=== PATIENT | female | born 1980 | race Two or more races ===

== ENCOUNTER 2020-01-17 16:12 | Inpatient (IN) | payer MEDICAID, OTHER ==
[~2020-01-17] VITALS: Ht 165.1 cm; Wt 107.2 kg
[2020-01-17] MEDS ORDERED: SODIUM CHLORIDE 0.9% 1,000 ML IV ONE ×2 (16:18)
[2020-01-17] MEDS ORDERED: ONDANSETRON HCL 4 MG/2 ML VIAL IV ONE (16:30)
[2020-01-17] MEDS ORDERED: MORPHINE SULFATE 4 MG/ML SYR/VIAL IV ONE (16:30)
[2020-01-17] MEDS ORDERED: ASPirin 81 mg TAB PO ONE (16:30)
[2020-01-17 17:00] LABS: Basophils # (auto) 0 10 ^3/uL (0-0.2); Basophils % (auto) 0.3 % (0.0-2.0); Eosinophils # (auto) 0.2 10 ^3/uL (0-0.8); Lymphocytes # (auto) 1.9 10 ^3/uL (0.4-5.4); Monocytes # (auto) 0.7 10 ^3/uL (0-1.3)
[2020-01-17 17:02] LABS: Eosinophils % (auto) 1.3 % (0.0-7.0); Hematocrit 41.9 % (36.0-46.0); Hemoglobin 14.2 g/dL (12.2-16.2); Lymphocytes % (auto) 16.1 % (10.0-50.0); Mean Corpuscular Hemoglobin 34.3 pg (28.0-32.0); Mean Corpuscular Hgb Conc. 33.9 g/dL (32.0-36.0); Mean Corpuscular Volume 101.2 fL (80.0-100.0); Monocytes % (auto) 5.9 % (0.0-12.0); Neutrophils # (auto) 9.2 10 ^3/uL (1.6-8.6); Neutrophils % (auto) 76.4 % (37.0-80.0); Nucleated Red Blood Cells % 0.1 %; Platelet Count (auto) 218 10^3/uL (140-450); Red Blood Cells 4.14 10^6/uL (4.0-5.20); White Blood Cell 12.1 10^3/uL (4.4-10.8)
[2020-01-17 17:18] LABS: Alanine Aminotransferase 128 U/L (13-56); Albumin 3.6 g/dL (3.4-5.0); Anion Gap 4 (5-15); Aspartate Aminotransferase 66 U/L (15-37); BUN/Creatinine Ratio 6.8; Blood Urea Nitrogen 6 mg/dL (7-18); Calcium 8.7 mg/dL (8.5-10.1); Carbon Dioxide 25 mmol/L (21-32); Chloride 105 mmol/L (98-107); GFR African American 91 mL/min; GFR Non-African American 75 mL/min; Glucose 138 mg/dL (74-106); Potassium 5.2 mmol/L (3.5-5.1); Sodium 134 mmol/L (136-145)
[2020-01-17 17:23] LABS: Alkaline Phosphatase 76 U/L (45-117); Bilirubin, Total 0.3 mg/dL (0.2-1.0); Total Protein 7.7 g/dL (6.4-8.2)
[2020-01-17] MEDS ORDERED: SODIUM ZIRCONIUM CYCL 10 GM PAK PO ONE (17:45)
[2020-01-17] MEDS ORDERED: InsuLIN REG 1unit/0.01ml Soln (100units/ml) IV ONE (17:45)
[2020-01-17] MEDS ORDERED: CALCIUM CHL 100MG/ML 500 MG in D5W 5% 100 ML IV ONE (17:45)
[2020-01-17] MEDS ORDERED: DEXTROSE (50%) 50ML SYRG IV ONE (17:45)
[2020-01-17] MEDS ORDERED: SODIUM BICARBONATE 8.4% INJ 50ML SYRINGE IV ONE (17:45)
[2020-01-17] MEDS ORDERED: ALBUTEROL SULF 2.5 MG/0.5ML(0.5%) NEB SOLN NEB ONE (17:45)
[2020-01-17] MEDS ORDERED: MORPHINE SULF INJ 2 MG/ML SYRINGE 1ML IV PRN (18:00)
[2020-01-17] MEDS ORDERED: hydrALAZINE HCL 20 MG/ML VL IV PRN (18:00)
[2020-01-17] MEDS ORDERED: ACETAMINOPHEN 500 MG TAB PO PRN (18:00)
[2020-01-17] MEDS ORDERED: ONDANSETRON HCL 4 MG/2 ML VIAL IV PRN (18:00)
[2020-01-17] MEDS: FOLIC ACID 1 MG, MULTIPLE VITAMIN 10 ML, MAGNESIUM SULF SDV 50% 8 MEQ, THIAMINE INJ 100... INJ SCH ×5 (19:33)
[2020-01-17 20:30] VITALS: BP 159/100
--- NOTE | 2020-01-17 21:00 | NUR ---
Telemetry admit from ER NATHANYONATAN admitted to Telemetry unit after SBAR received. Patient oriented to Inessa Lopez RN primary RN, unit, room, bed, and unit policies regarding patient care and visiting hours. Patient now on continuous telemetry monitoring, tele box # [id number] and telemetry reading on arrival to unit is SR. Patient weighed by bedscale and encouraged to call if they need something. All questions and concerns addressed, patient verbalized understanding, will continue to monitor Note: []
[2020-01-17] MEDS: METOPROLOL TARTRATE 25 MG TAB PO SCH (21:42)
[2020-01-17] MEDS: ATORVASTATIN 20 MG TAB PO SCH (21:42)
[2020-01-17 23:44] VITALS: BP 159/100
[2020-01-18 00:45] VITALS: BP 159/104
--- NOTE | 2020-01-18 01:35 | NUR ---
Received a critical Troponin of 4.56. Will page hospitalist
[2020-01-18] MEDS: NITROGLYCERIN 0.4 MG SL TAB SL PRN ×3 (01:40→02:04)
--- NOTE | 2020-01-18 01:40 | NUR ---
0137 - Paged Hospitalist, awaiting call back [phone] - Checked on patient, patient complained of chest pain and chest pressure of 8/10. Complained of sweating. O2 administered at 2 Lpm/NC V/S checked and gave NTG SL x 3 doses q 5 mins 0155 - EKG done and attached to chart
[2020-01-18] MEDS: MORPHINE SULF INJ 2 MG/ML SYRINGE 1ML IV PRN ×2 (02:12→02:52)
--- NOTE | 2020-01-18 02:12 | NUR ---
0210 - Patient stated chest pressure is still there but pain is coming down from 8/10 to 6/10. Per patient, still felt uncomfortable 0212 - Gave Morphine per chest pain protocol 0225 - 2nd page placed to hospitalist, awaiting call back
--- NOTE | 2020-01-18 02:45 | NUR ---
0243 - Hospitalist John called back and updated on patient's status. Received order at this time to give Lovenox x1 Will closely monitor patient
[2020-01-18] MEDS ORDERED: ENOXAPARIN SOD 80 MG/0.8ML SYRINGE SC ONE (03:00)
--- NOTE | 2020-01-18 03:51 | NUR ---
Patient sleeping at this time, no respiratory distress noted. Heart rhythm on the monitor running SR at this time in the 80's. Will continue to monitor
[2020-01-18 05:39] VITALS: BP 154/99
[2020-01-18 06:21] LABS: Basophils # (auto) 0 10 ^3/uL (0-0.2); Basophils % (auto) 0.1 % (0.0-2.0); Eosinophils # (auto) 0 10 ^3/uL (0-0.8); Eosinophils % (auto) 0.1 % (0.0-7.0); Hematocrit 42.9 % (36.0-46.0); Hemoglobin 14.8 g/dL (12.2-16.2); Lymphocytes # (auto) 1.3 10 ^3/uL (0.4-5.4); Lymphocytes % (auto) 7.2 % (10.0-50.0); Mean Corpuscular Hemoglobin 34.8 pg (28.0-32.0); Mean Corpuscular Hgb Conc. 34.4 g/dL (32.0-36.0); Mean Corpuscular Volume 101.1 fL (80.0-100.0); Monocytes # (auto) 0.8 10 ^3/uL (0-1.3); Monocytes % (auto) 4.1 % (0.0-12.0); Neutrophils # (auto) 16.6 10 ^3/uL (1.6-8.6); Neutrophils % (auto) 88.5 % (37.0-80.0); Nucleated Red Blood Cells % 0.1 %; Platelet Count (auto) 238 10^3/uL (140-450); Red Blood Cells 4.24 10^6/uL (4.0-5.20); Red Cell Distribution Width 12.8 % (11.8-14.3); White Blood Cell 18.8 10^3/uL (4.4-10.8)
[2020-01-18 06:30] LABS: INR 1.01 (0.9-1.15); Partial Thromboplastin Time 29.3 sec (23.64-32.05)
[2020-01-18 06:35] VITALS: BP 148/98
[2020-01-18] MEDS: HYDROcodone-ACET 5/325MG TAB PO PRN (06:36)
--- NOTE | 2020-01-18 06:36 | NUR ---
Patient stated has a tolerable pain with sore upper back. [place] given at this time
[2020-01-18 06:38] LABS: Potassium 3.9 mmol/L (3.5-5.1)
[2020-01-18 06:50] LABS: BUN/Creatinine Ratio 6.6; Calcium 8.6 mg/dL (8.5-10.1)
--- NOTE | 2020-01-18 07:30 | NUR ---
Opening Shift Note Assumed care of patient, awake and alert. No S/S of distress/SOB. Patient reporting some chest discomfort but states "it went down from earlier" and is currently refusing readministration of morphine and nitroglycerin PRN. On 3L O2 nasal cannula. Bed is low, locked with 2x side rails up. Call light is within reach. Instructed on POC and to call for assist PRN, will continue to monitor for changes Q1hr and PRN.
[2020-01-18 08:32] VITALS: BP 142/95
[2020-01-18 08:52] LABS: Urine WBC None Seen /hpf (0 - 5)
[2020-01-18 09:00] LABS: Urine Amorphous Crystal MOD /hpf (None Seen); Urine Bacteria NONE SEEN /hpf (None Seen); Urine Blood Negative /uL (Negative); Urine Mucus FEW (None Seen); Urine Specific Gravity 1.028 (1.001-1.035)
[2020-01-18 09:19] LABS: Alcohol, Urine < 3.0 mg/dL (0-5); Amphetamine Screen, Urine NEGATIVE (NEGATIVE); Barbiturate Scree,Urine NEGATIVE (NEGATIVE); Benzodiazephine Screen, Urine NEGATIVE (NEGATIVE); Cannabinoid Screen, Urine NEGATIVE (NEGATIVE); Cocaine Screen, Urine NEGATIVE (NEGATIVE); Opiate Scree,Urine POSITIVE (NEGATIVE); Phencyclidine Screen, Urine NEGATIVE (NEGATIVE)
--- NOTE | 2020-01-18 09:20 | NUR ---
Attempted IV insertion IV to right AC is leaking, and no longer patent. IV removed with catheter fully intact. This nurse attempted 2 IV's and patient refusing 3rd attempt. Charge nurse Fernanda present at this time. Patient is also refusing morphine and nitroglycerin administration. Will continue to monitor.
[2020-01-18] MEDS ORDERED: CLOPIDOGREL 300 MG TAB PO ONE (09:30)
[2020-01-18] MEDS: ASPirin-EC 81 mg tab PO SCH (09:59)
[2020-01-18] MEDS: METOPROLOL TARTRATE 25 MG TAB PO SCH ×2 (09:59→21:52)
[2020-01-18] MEDS ORDERED: LISINOPRIL 10 MG TAB PO SCH ×2 (10:00)
[2020-01-18] MEDS: FAMOTIDINE 20 MG TAB PO SCH (10:00)
--- NOTE | 2020-01-18 10:03 | NUR ---
technician assistant at bedside. no distress noted.
[2020-01-18] MEDS ORDERED: HEPARIN SODIUM (PORCINE) 5000 UNITS/ML 1ML VIAL IV ONE (10:05)
--- NOTE | 2020-01-18 10:06 | NUR ---
Pharmacy Called pharmacy regarding plavix medication. Will be sent up through bullet system.
[2020-01-18 10:13] LABS: Magnesium 2.7 mg/dL (1.6-2.6)
[2020-01-18] MEDS ORDERED: HEPARIN DRIP/D5W 100UNITS/ML 250 ML IV SCH (10:15)
--- NOTE | 2020-01-18 10:15 | NUR ---
REPORT Report received from Abi PANCHAL awaiting for patient to arrive into room 263.
[2020-01-18] MEDS ORDERED: NITROGLYCERIN 0.2MG/HR TOPICAL PATCH TD ONE (10:45)
[2020-01-18] MEDS ORDERED: NICOTINE 14 MG/24HR TOPICAL PATCH TD ONE (10:45)
--- NOTE | 2020-01-18 10:45 | NUR ---
Patient transferred to [facility] Care endorsed to [facility] RN. No distress noted upon departure. RN aware of critical troponin of 36.40.
--- NOTE | 2020-01-18 10:45 | NUR ---
RECEIVED PATIENT Received patient into room 263. Connected patient to bedside monitor and physical assessment done. Call light within reach and bed at lowest position.
[2020-01-18] MEDS: FOLIC ACID 1 MG, MULTIPLE VITAMIN 10 ML, MAGNESIUM SULF SDV 50% 8 MEQ, THIAMINE INJ 100... INJ SCH ×5 (11:14)
--- NOTE | 2020-01-18 11:25 | NUR ---
PLASTERER STUCCO Paged Ale Perez PLASTERER STUCCO/Called back and aware of high blood pressure and unable to get IV access after multiple tries. Several nurses have tried. New orders received, this RN to input into system.
[2020-01-18] MEDS ORDERED: LABETALOL HCL 5 MG/ML 4ML SYRINGE IV PRN (11:30)
--- NOTE | 2020-01-18 13:12 | NUR ---
MD Dr. Mckeon at bedside updated on patient condition with new orders, this RN to input into system. MD aware of increase blood pressure and O2 sats. MD spoke to patient regarding plan of care and questions/concerns answered by MD.
[2020-01-18] MEDS ORDERED: cloNIDine HCL 0.1 MG TAB PO PRN (13:15)
[2020-01-18] MEDS ORDERED: VANCOMYCIN PER PHARMACY 0 MG IV SCH (13:15)
[2020-01-18] MEDS ORDERED: VANCOMYCIN 1GM/250ML 250 ML IV ONE (13:45)
[2020-01-18 14:15] LABS: Lactic Acid w/Reflex 2.8 mmol/L (0.4-2.0)
--- NOTE | 2020-01-18 15:20 | NUR ---
CRITICAL LAB Received critical lab result of Troponin of 71.6, JENNIFER Perez paged to be notified, awaiting for call back.
[2020-01-18 15:59] VITALS: BP 137/84
--- NOTE | 2020-01-18 16:15 | NUR ---
JENNIFER Perez TOE PUNCHER called back and new orders received, this RN to input into system. Will carry out orders.
--- NOTE | 2020-01-18 16:20 | NUR ---
JENNIFER Perez at bedside aware of EKG done and elevated troponin of 71.6. Ale RODRIGUEZ called Dr. Rosenthal to make aware and schedule left heart cath today.
[2020-01-18] MEDS ORDERED: NITROGLYCERIN 50MG/250ML 250 ML IV SCH (16:24)
--- NOTE | 2020-01-18 16:30 | NUR ---
CONSENTS Consent obtained for left heart cath.
[2020-01-18] MEDS ORDERED: NITROGLYCERIN 50MG/250ML 250 ML IV ONE (16:41)
[2020-01-18 16:49] LABS: INR 0.99 (0.9-1.15); Partial Thromboplastin Time 33.9 sec (23.64-32.05)
[2020-01-18] MEDS ORDERED: HEPARIN SODIUM (PORCINE) 5000 UNITS/ML 1ML VIAL ONE ×2 (16:57→17:41)
[2020-01-18] MEDS ORDERED: ANGIOMAX 250 MG VIAL IV ONE (16:57)
[2020-01-18] MEDS ORDERED: MIDAZOLAM HCL 1MG/1ML-2 ML VIAL ONE (16:58)
[2020-01-18] MEDS ORDERED: VERAPAMIL 2.5MG/ML INJ 2ML VIAL IV ONE (16:58)
[2020-01-18] MEDS ORDERED: fentaNYL CITRATE 100 MCG/2 ML VL ONE (16:58)
[2020-01-18] MEDS ORDERED: LIDOCAINE 2%HCL (LOCAL ANESTH.) INJ 20ML MDV ONE (16:58)
[2020-01-18] MEDS ORDERED: SODIUM CHL 0.9% 0 ML ONE (16:58)
--- NOTE | 2020-01-18 17:05 | NUR ---
CONVERSION MAN prestressed concrete laborer team at bedside to transfer patient to bobcat driver/labor. Patient connected to cafeteria monitor and portable oxygen.
[2020-01-18] MEDS ORDERED: IOHEXOL 350 MG/ML 100ML IJ ONE ×2 (17:06→17:42)
[2020-01-18] MEDS: PIPERACILLIN-TAZOB 3.375GM 100 ML IV SCH (18:00)
[2020-01-18] MEDS ORDERED: ASPirin 325 MG TAB ONE (18:14)
--- NOTE | 2020-01-18 18:30 | NUR ---
PATIENT RETURNED Patient returned from brush clearing laborer, connected patient to bedside monitor, patient on simple mask at 15 liters. vital signs stable. Insertion site on the right radial with pressure device inflated with 14ml of air per brush clearing laborer nurses deflate device by 2 ml starting in one hour.
--- NOTE | 2020-01-18 18:30 | NUR ---
Dio return from Armored Car Guard And Driver; Patient taken back to [facility] 263 on patient monitor, care endorsed to primary [facility] RN, Patient vital signs stable and denies any pain, TR band in place, no bleeding noted at this time.
--- NOTE | 2020-01-18 19:20 | NUR ---
opening note received report from vale rn. patient aox4 on 15 L face mask stating >90% spo2. breathing in 30's stating that she is anxious related to face mask being on her face. called respiratory therapist to change to Oxymizer. no chest discomfort. st 110 on bedside monitor with bp 120's/50's. right wrist ptca incision site intact with air guard dressing. will remove air per hospital policy. repositioned patient for comfort. for more information see interventions. all fall and safety precautions in place.
[2020-01-18 20:00] VITALS: BP 122/80
--- NOTE | 2020-01-18 20:10 | NUR ---
placed patient on Oxymizer 8L nc for patient to stat >92%spo2 on bedside monitor. breathing 25 bpm at this time. patient does not complain of sob
[2020-01-18] MEDS: ATORVASTATIN 20 MG TAB PO SCH (21:52)
[2020-01-19] VITALS: BP 127/62
[2020-01-19 03:31] LABS: Eosinophils # (auto) 0 10 ^3/uL (0-0.8); Eosinophils % (auto) 0.1 % (0.0-7.0); Lymphocytes # (auto) 1.4 10 ^3/uL (0.4-5.4); Mean Corpuscular Hemoglobin 34.6 pg (28.0-32.0); Monocytes # (auto) 1.4 10 ^3/uL (0-1.3); Nucleated Red Blood Cells % 0.1 %; Red Cell Distribution Width 13.2 % (11.8-14.3)
[2020-01-19 03:33] LABS: Basophils # (auto) 0 10 ^3/uL (0-0.2); Basophils % (auto) 0.2 % (0.0-2.0); Hematocrit 40.9 % (36.0-46.0); Hemoglobin 14.1 g/dL (12.2-16.2); Lymphocytes % (auto) 6.8 % (10.0-50.0); Mean Corpuscular Hgb Conc. 34.5 g/dL (32.0-36.0); Mean Corpuscular Volume 100.5 fL (80.0-100.0); Monocytes % (auto) 6.8 % (0.0-12.0); Neutrophils # (auto) 18.3 10 ^3/uL (1.6-8.6); Neutrophils % (auto) 86.1 % (37.0-80.0); Platelet Count (auto) 231 10^3/uL (140-450); Red Blood Cells 4.07 10^6/uL (4.0-5.20); White Blood Cell 21.2 10^3/uL (4.4-10.8)
[2020-01-19 03:46] LABS: INR 1.01 (0.9-1.15); Partial Thromboplastin Time 27.3 sec (23.64-32.05)
[2020-01-19 03:49] LABS: BUN/Creatinine Ratio 7.6; Calcium 8.1 mg/dL (8.5-10.1); Potassium 3.7 mmol/L (3.5-5.1)
[2020-01-19] MEDS: PIPERACILLIN-TAZOB 3.375GM 100 ML IV SCH ×4 (04:14→20:01)
[2020-01-19] MEDS: VANCOMYCIN 1GM/250ML 250 ML IV SCH ×3 (04:15→23:14)
--- NOTE | 2020-01-19 07:45 | NUR ---
Opening Shift Note Assumed care of patient, awake and alert. No S/S of distress/SOB or pain. See interventions for complete assessment. Bed locked on low position, side rails up2, call restrepo within reach, instructed on POC and to call for assist PRN, will continue to monitor for changes Q1hr and PRN.
[2020-01-19 07:55] VITALS: BP 127/84
--- NOTE | 2020-01-19 08:45 | NUR ---
Dr Del Rio at bedside, updated on patient's status. Patient seen and examined. Received verbal order for D dimer, read back and verified. Will carry out new orders.
[2020-01-19] MEDS ORDERED: NICOTINE 14 MG/24HR TOPICAL PATCH TD SCH (10:00)
[2020-01-19] MEDS ORDERED: PANTOPRAZOLE 40 MG TAB PO SCH (10:00)
[2020-01-19] MEDS ORDERED: NITROGLYCERIN 0.2MG/HR TOPICAL PATCH TD SCH (10:00)
[2020-01-19] MEDS: LISINOPRIL 10 MG TAB PO SCH (10:00)
--- NOTE | 2020-01-19 10:00 | NUR ---
IV removal IV on RT hand puffy and tender, discontinued with sterile technique, catheter fully intact. Pressure dressing applied to site. Patient tolerated procedure well.
[2020-01-19] MEDS: CLOPIDOGREL BISULFATE 75 MG TAB PO SCH (10:08)
[2020-01-19] MEDS: ASPirin-EC 81 mg tab PO SCH (10:08)
[2020-01-19] MEDS: FAMOTIDINE 20 MG TAB PO SCH (10:08)
[2020-01-19] MEDS: NICOTINE 14 MG/24HR TOPICAL PATCH TD SCH (10:08)
[2020-01-19] MEDS: METOPROLOL TARTRATE 25 MG TAB PO SCH ×2 (10:10→21:49)
[2020-01-19] MEDS: CARVEDILOL 3.125 MG TAB PO SCH (10:11)
--- NOTE | 2020-01-19 10:23 | NUR ---
Spoke to Dr Del Rio over the phone, informed of D dimer 0.93, verbalized understanding. Received telephone orders for BLE venous US, read back and verified. Will carry out.
[2020-01-19] MEDS: IPRATROPIUM BROM 0.5 MG/2.5ML INH SOL NEB SCH ×4 (10:35→22:09)
[2020-01-19] MEDS: ALBUTEROL SULF 2.5 MG/0.5ML(0.5%) NEB SOLN NEB SCH ×4 (10:36→22:09)
[2020-01-19 11:53] VITALS: BP 105/59
[2020-01-19 12:02] VITALS: BP 105/59
--- NOTE | 2020-01-19 12:53 | NUR ---
Dr Rosenthal at bedside, updated on patient's status. Patient seen and examined. Will carry out new orders.
[2020-01-19] MEDS: FOLIC ACID 1 MG, MULTIPLE VITAMIN 10 ML, MAGNESIUM SULF SDV 50% 8 MEQ, THIAMINE INJ 100... INJ SCH ×5 (12:57)
[2020-01-19 15:46] VITALS: BP 103/66
--- NOTE | 2020-01-19 19:45 | NUR ---
Opening note Report received from vale RN. Patient is A/OX4, denies any pain or distress. Patient connected to continuous monitor, heart rate in low 100's, SPO2 at 96% on 4L oxymizer. Physical assessment done-see interventions. IV to left hand running banana bag from earlier today. Incision to right wrist open to air, asymptomatic. POC discussed and all questions answered. Call light within reach.
[2020-01-19 20:00] VITALS: BP 91/70
[2020-01-19] MEDS: ATORVASTATIN 20 MG TAB PO SCH (21:48)
--- NOTE | 2020-01-19 22:00 | NUR ---
IV insertion IV access obtained, via clean sterile technique by inserting [22] gauge catheter at [RIGHT UPPER FOREARM] after [1] attempt(s). IV secured properly. No trauma to site. Patient tolerated well. NOTE: 2ND IV SITE
--- NOTE | 2020-01-19 22:05 | NUR ---
IV removal TO LEFT HAND DUE TO SWOLLEN IV DC'd with clean sterile technique, catheter fully intact. Pressure dressing applied to site. Patient tolerated well.
[2020-01-20] VITALS: BP 99/64
[2020-01-20] MEDS: PIPERACILLIN-TAZOB 3.375GM 100 ML IV SCH ×4 (02:18→20:00)
[2020-01-20] MEDS: ALBUTEROL SULF 2.5 MG/0.5ML(0.5%) NEB SOLN NEB SCH ×6 (02:19→21:57)
[2020-01-20] MEDS: IPRATROPIUM BROM 0.5 MG/2.5ML INH SOL NEB SCH ×6 (02:19→21:57)
--- NOTE | 2020-01-20 02:30 | NUR ---
AM CARES Patient given complete bed bath and linen change by LORI Lucero. Patient cleansed with warm soapy water. New gown provided and patient reconnected to monitors.
[2020-01-20 03:42] LABS: Basophils # (auto) 0 10 ^3/uL (0-0.2); Basophils % (auto) 0.2 % (0.0-2.0); Eosinophils # (auto) 0.1 10 ^3/uL (0-0.8); Red Cell Distribution Width 13.2 % (11.8-14.3)
[2020-01-20 03:45] LABS: Eosinophils % (auto) 0.5 % (0.0-7.0); Hematocrit 37.7 % (36.0-46.0); Lymphocytes # (auto) 2.4 10 ^3/uL (0.4-5.4); Lymphocytes % (auto) 13.5 % (10.0-50.0); Mean Corpuscular Hgb Conc. 34.5 g/dL (32.0-36.0); Mean Corpuscular Volume 101.3 fL (80.0-100.0); Monocytes # (auto) 1.3 10 ^3/uL (0-1.3); Monocytes % (auto) 7.3 % (0.0-12.0); Neutrophils # (auto) 13.9 10 ^3/uL (1.6-8.6); Neutrophils % (auto) 78.5 % (37.0-80.0); Nucleated Red Blood Cells % 0.2 %; Platelet Count (auto) 215 10^3/uL (140-450); Red Blood Cells 3.72 10^6/uL (4.0-5.20); White Blood Cell 17.6 10^3/uL (4.4-10.8)
[2020-01-20 04:00] VITALS: BP 110/79
--- NOTE | 2020-01-20 06:37 | NUR ---
DESATURATION PATIENT ON ROOM AIR FOR PENDING ABG. PATIENT DESATURATING DOWN TO LOW 80'S AND SUSTAINING. RT PAGED TO DRAW ABG NOW
--- NOTE | 2020-01-20 07:22 | NUR ---
Closing Patient awake, resting in bed. Patient back on oxygen. Patient now saturating at 96% on 4L nasal cannula. Pending ABG results. Call light within reach Care endorsed to RN Lokesh
--- NOTE | 2020-01-20 07:45 | NUR ---
Opening Shift Note Assumed care of patient, awake and alert, lying on the bed. No S/S of distress/SOB or chest pain noted, on O2 NC 4 LPM, O2 saturation 94-96%. Instructed on POC and to call for assist PRN, will continue to monitor for changes Q1hr and PRN. Breakfast tray provided.
[2020-01-20 07:56] VITALS: BP 94/64
--- NOTE | 2020-01-20 08:25 | NUR ---
Dr. Del Rio at the bedside, seen and examined patient at this time, plan of care discussed with patient, plan to do CT chest with contrast possible tomorrow, patient made aware about the plan. Received order for transfer to Tele . Patient agreed with the plan.
[2020-01-20] MEDS ORDERED: LOPERAMIDE HCL 2 MG CAP ONE (09:27)
[2020-01-20] MEDS: FAMOTIDINE 20 MG TAB PO SCH (09:29)
[2020-01-20] MEDS: CLOPIDOGREL BISULFATE 75 MG TAB PO SCH (09:29)
[2020-01-20] MEDS: LISINOPRIL 10 MG TAB PO SCH (09:30)
[2020-01-20] MEDS: ASPirin-EC 81 mg tab PO SCH (09:30)
[2020-01-20] MEDS: CARVEDILOL 3.125 MG TAB PO SCH (09:30)
[2020-01-20] MEDS: VANCOMYCIN 1GM/250ML 250 ML IV SCH ×2 (09:32→17:07)
[2020-01-20] MEDS: NICOTINE 14 MG/24HR TOPICAL PATCH TD SCH (09:32)
--- NOTE | 2020-01-20 09:35 | NUR ---
Pricilla CHIEF YEOMAN at the bedside, seen and examined patient at this time, plan of c are discussed with patient, received order for D/C Metoprolol and Protonix, will carry out, patient made aware.
--- NOTE | 2020-01-20 10:30 | NUR ---
IV insertion IV access obtained, via clean sterile technique by inserting 22 gauge catheter at right forearm after 1 attempt(s). IV secured properly. No trauma to site. Patient tolerated procedure well.
--- NOTE | 2020-01-20 10:49 | NUR ---
IV removal previous right forearm due to irritation IV DC'd with sterile technique, catheter fully intact. Pressure dressing applied to site. Patient tolerated procedure well.
[2020-01-20 11:59] VITALS: BP 99/68
--- NOTE | 2020-01-20 12:06 | NUR ---
Received a call from Pricilla RODRIGUEZ, received order for downgrade to Tele, Echocardiogram post PCI, Social service consult for insurance.
--- NOTE | 2020-01-20 13:43 | NUR ---
Echocardiogram at the bedside.
[2020-01-20] MEDS: FOLIC ACID 1 MG, MULTIPLE VITAMIN 10 ML, MAGNESIUM SULF SDV 50% 8 MEQ, THIAMINE INJ 100... INJ SCH ×5 (14:01)
--- NOTE | 2020-01-20 14:22 | NUR ---
Patient used the bedside commode and then sitting on the chair, watching TV, no complaining of chest pain noted. HR 90/min O2 saturation 96-98% with O2 NC 4 LPM.
--- NOTE | 2020-01-20 14:34 | NUR ---
Nutrition Assessment Notes Please see attached link for complete assessment Est Energy needs ABW 80 [id number] (20-23 kcal/kgBW), Est Protein needs: 80-88 gms/day (1.0-1.1 gm/kgBW). Will continue to monitor and reassess prn. Addendum: 01/20/20 at [address] Amended: Links added.
--- NOTE | 2020-01-20 14:57 | NUR ---
assessment Patient is a 39 year old female who is alert and oriented. Patients cognitive abilities are intact. Prior to admission patient lived home with family and functioned independently. Patient informed me she is able to care for her own ADLs. Per patient she will return home to her prior living arrangements post discharge and family will transport her home. Patient has no insurance. Patient has unemployment of 600.00 per month. Patient has been assessed by Leroy Pulliam of [facility]. Per Leroy patients Medi-yari is secure. I have provided patient with resources for [facility], Dr. Sheikh, and [facility] urgent care for follow up visits. I have provided patient with a prescription card from community assistance program. Patient may need home 02 on discharge. Patient is willing to pay for 02 until medi-yari is active. I informed patient she has a right to speak to a drug abuse social worker regarding all care. I informed patient she has a right to participate in any and all discharge planning. Patient does not have a POA and advanced directive. I have offered patient information on POA and advanced directives. I informed the patient the advantages and benefits of having an Advanced Directive. Patient verbalized understanding and agreed to discharge plan. Addendum: 01/20/20 at 1500 by Mary CAPELLAN Amended: Links added.
[2020-01-20 16:00] VITALS: BP 101/65
--- NOTE | 2020-01-20 16:26 | NUR ---
Patient went back to bed, standby assist. No chest pain noted.
--- NOTE | 2020-01-20 18:07 | NUR ---
Dinner tray provided, patient sitting at the edge of the bed, no complaining of chest pain noted.
--- NOTE | 2020-01-20 19:02 | NUR ---
RT NOTE PT WAS SEEN BY RT FOR HHN TX. PT TOLERATES WELL VIA MASK. NO ADVERSE REACTION NOTED. CONT ORDERED. Addendum: 01/20/20 at 1903 by Iza Rea RT Amended: Links added.
[2020-01-20 20:00] VITALS: BP 103/63
[2020-01-20] MEDS: ATORVASTATIN 20 MG TAB PO SCH (20:00)
[2020-01-20] MEDS: HYDROcodone-ACET 5/325MG TAB PO PRN (20:00)
--- NOTE | 2020-01-20 21:58 | NUR ---
RT NOTE PT WAS SEEN BY RT FOR HHN TX. PT TOLERATES WELL VIA MASK. NO ADVERSE REACTION NOTED. CONT ORDERED Addendum: 01/20/20 at 2159 by Iza Rea RT Amended: Links added.
[2020-01-21] VITALS: BP 100/62
[2020-01-21] MEDS: ALBUTEROL SULF 2.5 MG/0.5ML(0.5%) NEB SOLN NEB SCH ×6 (02:03→22:26)
[2020-01-21] MEDS: IPRATROPIUM BROM 0.5 MG/2.5ML INH SOL NEB SCH ×6 (02:03→22:26)
--- NOTE | 2020-01-21 02:07 | NUR ---
RT NOTE PT WAS SEEN BY RT FOR HHN TX. PT TOLERATED WELL VIA MASK. NO ADVERSE REACTION NOTED. CONT ORDERED Addendum: 01/21/20 at 0228 by Iza Rea RT Amended: Links added.
[2020-01-21] MEDS: VANCOMYCIN 1GM/250ML 250 ML IV SCH ×3 (02:23→17:03)
[2020-01-21] MEDS: PIPERACILLIN-TAZOB 3.375GM 100 ML IV SCH ×4 (02:29→21:53)
[2020-01-21 03:45] LABS: Basophils # (auto) 0 10 ^3/uL (0-0.2); Eosinophils # (auto) 0.3 10 ^3/uL (0-0.8); Monocytes # (auto) 0.8 10 ^3/uL (0-1.3); Neutrophils # (auto) 9.2 10 ^3/uL (1.6-8.6); Nucleated Red Blood Cells % 0.1 %
[2020-01-21 03:47] LABS: Basophils % (auto) 0.2 % (0.0-2.0); Eosinophils % (auto) 2.1 % (0.0-7.0); Hematocrit 38.4 % (36.0-46.0); Hemoglobin 12.9 g/dL (12.2-16.2); Lymphocytes % (auto) 16.3 % (10.0-50.0); Mean Corpuscular Hemoglobin 34.6 pg (28.0-32.0); Mean Corpuscular Hgb Conc. 33.6 g/dL (32.0-36.0); Mean Corpuscular Volume 102.8 fL (80.0-100.0); Monocytes % (auto) 6.2 % (0.0-12.0); Neutrophils % (auto) 75.2 % (37.0-80.0); Platelet Count (auto) 215 10^3/uL (140-450); Red Blood Cells 3.74 10^6/uL (4.0-5.20); Red Cell Distribution Width 13.1 % (11.8-14.3); White Blood Cell 12.2 10^3/uL (4.4-10.8)
[2020-01-21 04:00] VITALS: BP 105/65
[2020-01-21 04:13] LABS: Albumin 2.7 g/dL (3.4-5.0); BUN/Creatinine Ratio 10.3; Calcium 8.1 mg/dL (8.5-10.1); Potassium 3.5 mmol/L (3.5-5.1)
[2020-01-21 04:16] LABS: Bilirubin, Total 0.7 mg/dL (0.2-1.0); Total Protein 6.9 g/dL (6.4-8.2)
--- NOTE | 2020-01-21 05:11 | NUR ---
[facility] notified, they will call back regarding report
--- NOTE | 2020-01-21 05:48 | NUR ---
[facility] contacted once more regarding patient transfer
--- NOTE | 2020-01-21 05:50 | NUR ---
RECEIVED REPORT FROM NURSE KEITA REGARDING PATIENT WHO IS BEING DOWNGRADED TO TELEMETRY INTO ROOM 222B FROM [facility]. AWAITING PATIENT ARRIVAL TO FLOOR.
--- NOTE | 2020-01-21 06:22 | NUR ---
Full report given to accepting rn. POC, current labs, and medications expressed in report. Patient vital signs within normal limits per hospital policy and standard. Patient remains on 2l nc. denies sob. denies cp. Patient afebrile. Patient and all belongings transferred to new room. Patient transferred in wheelchair with cct on telemetry. patient remains NSR. Patient in new room with bed locked and in low position with call light in reach. Accepting RN at bedside. Signing off.
--- NOTE | 2020-01-21 06:45 | NUR ---
PATIENT ARRIVED VIA WHEELCHAIR IN NO APPARENT CARDIAC OR PULMONARY DISTRESS OR SOB. ON O2 4LNC. ALL BELONGINGS WITH PATIENT. INFORMED PATIENT PLAN OF CARE AND ECHO IS DUE TODAY. PATIENT VERBALIZES UNDERSTANDING NO QUESTIONS ASKED. CALL LIGHT WITHIN REACH WILL CONTINUE TO MONITOR PATIENT.
--- NOTE | 2020-01-21 07:23 | NUR ---
Opening Shift Note Assumed care of patient, awake and alert. No S/S of distress/SOB or pain. Instructed on POC and to call for assist PRN, will continue to monitor for changes Q1hr and PRN. Bed is set in lowest locked position with side rails up x 2 for safety and call light is within reach.
[2020-01-21 08:48] VITALS: BP 105/64
--- NOTE | 2020-01-21 09:42 | NUR ---
MD Del Rio at bedside Updated pt on POC. aware of patient's blood pressure 86/61 upon re-check 105/64, per MD request stop all BP medications.
[2020-01-21] MEDS: ASPirin-EC 81 mg tab PO SCH (10:20)
[2020-01-21] MEDS: CLOPIDOGREL BISULFATE 75 MG TAB PO SCH (10:20)
[2020-01-21] MEDS: FAMOTIDINE 20 MG TAB PO SCH (10:20)
[2020-01-21] MEDS: NICOTINE 14 MG/24HR TOPICAL PATCH TD SCH (10:21)
--- NOTE | 2020-01-21 11:51 | NUR ---
IV insertion IV access obtained, via clean sterile technique by inserting 20 gauge catheter at left forearm after one attempt. IV secured properly. No trauma to site. Patient tolerated procedure well.
[2020-01-21] MEDS ORDERED: IOHEXOL 350 MG/ML 100ML IJ ONE (12:01)
[2020-01-21] MEDS: FOLIC ACID 1 MG, MULTIPLE VITAMIN 10 ML, MAGNESIUM SULF SDV 50% 8 MEQ, THIAMINE INJ 100... INJ SCH ×5 (12:27)
[2020-01-21 13:06] VITALS: BP 90/58
--- NOTE | 2020-01-21 15:20 | NUR ---
Patient ambulating in hallway with physical therapy No signs of SOB, breaths are even and unlabored, no distress noted.
[2020-01-21 16:39] VITALS: BP 102/71
--- NOTE | 2020-01-21 19:17 | NUR ---
Care endorsed to NOC Cecille PANCHAL.
--- NOTE | 2020-01-21 19:30 | NUR ---
Opening Shift Note Assumed care of patient, awake and alert. No S/S of distress/SOB or pain. Instructed on POC and to call for assist PRN, will continue to monitor for changes Q1hr and PRN.
[2020-01-21] MEDS: ATORVASTATIN 20 MG TAB PO SCH (21:51)
[2020-01-21 22:00] VITALS: BP 99/68
[2020-01-22] MEDS: VANCOMYCIN 1GM/250ML 250 ML IV SCH ×3 (01:28→09:54)
[2020-01-22] MEDS: IPRATROPIUM BROM 0.5 MG/2.5ML INH SOL NEB SCH ×3 (02:15→10:22)
[2020-01-22] MEDS: ALBUTEROL SULF 2.5 MG/0.5ML(0.5%) NEB SOLN NEB SCH ×3 (02:15→10:22)
[2020-01-22] MEDS: PIPERACILLIN-TAZOB 3.375GM 100 ML IV SCH ×2 (04:04→10:00)
[2020-01-22 04:44] VITALS: BP 113/78
[2020-01-22 05:53] LABS: Basophils # (auto) 0 10 ^3/uL (0-0.2); Basophils % (auto) 0.3 % (0.0-2.0); Eosinophils # (auto) 0.4 10 ^3/uL (0-0.8); Hemoglobin 13.1 g/dL (12.2-16.2); Mean Corpuscular Volume 101.3 fL (80.0-100.0); Neutrophils # (auto) 8.5 10 ^3/uL (1.6-8.6); White Blood Cell 11.3 10^3/uL (4.4-10.8)
[2020-01-22 05:56] LABS: Eosinophils % (auto) 3.6 % (0.0-7.0); Hematocrit 37.6 % (36.0-46.0); Lymphocytes # (auto) 1.4 10 ^3/uL (0.4-5.4); Lymphocytes % (auto) 12.9 % (10.0-50.0); Mean Corpuscular Hemoglobin 35.1 pg (28.0-32.0); Mean Corpuscular Hgb Conc. 34.7 g/dL (32.0-36.0); Monocytes # (auto) 0.9 10 ^3/uL (0-1.3); Monocytes % (auto) 7.7 % (0.0-12.0); Neutrophils % (auto) 75.5 % (37.0-80.0); Platelet Count (auto) 226 10^3/uL (140-450); Red Blood Cells 3.72 10^6/uL (4.0-5.20)
[2020-01-22 06:09] LABS: Potassium 3.4 mmol/L (3.5-5.1)
[2020-01-22 06:23] LABS: Albumin 2.8 g/dL (3.4-5.0); BUN/Creatinine Ratio 10.5; Bilirubin, Total 0.6 mg/dL (0.2-1.0); Calcium 8.4 mg/dL (8.5-10.1); Total Protein 6.9 g/dL (6.4-8.2)
--- NOTE | 2020-01-22 07:30 | NUR ---
Opening Note Assumed patient care from MOE RN.
--- NOTE | 2020-01-22 08:30 | NUR ---
at bedside Dr. Del Rio at bedside discussing plan of care with patient. Per MD patient will be able to discharge at 1300 today, patient to continue oral antibiotic treatment at home. Patient verbalized understanding and is agreeable to plan of care.
--- NOTE | 2020-01-22 08:40 | NUR ---
Called RT Spoke with respiratory therapist regarding physician request for ABG draw.
--- NOTE | 2020-01-22 08:53 | NUR ---
Respiratory note: DID NOT DRAW ABG AT THIS TIME. PT SPO2 MAINTAINED ABOVE 93% ON RA. AMBULATED PT, SPO2 MAINTAINED BETWEEN 93%- 96% ON RA. PT STATES HER BREATHING FEELS SO MUCH BETTER. INFORMED DR Manuel YUEN OF RESULTS. DR YUEN IS ALSO AWARE RA ABG WILL NOT BE DRAWN.
[2020-01-22 09:20] VITALS: BP 113/76
[2020-01-22] MEDS: ASPirin-EC 81 mg tab PO SCH (09:53)
[2020-01-22] MEDS: CLOPIDOGREL BISULFATE 75 MG TAB PO SCH (09:53)
[2020-01-22] MEDS: FAMOTIDINE 20 MG TAB PO SCH (09:54)
[2020-01-22] MEDS: NICOTINE 14 MG/24HR TOPICAL PATCH TD SCH (09:54)
--- NOTE | 2020-01-22 10:05 | NUR ---
IV Discontinued Left and Right FA IV discontinued due to increased discomfort at site. Both IV's reassessed with saline flush, signs of infiltration at this time. Catheter intact, patient tolerated well with no signs of distress at this time. Patient refusing new IV at this time. Will continue to monitor.
--- NOTE | 2020-01-22 10:09 | NUR ---
Called MD Spoke with Dr. Paty Del Rio regarding patient's ABG. MD aware of RT note. Per MD discharge patient in afternoon. MD also aware of IV status and patient refusing new IV at this time. Per MD, patient does not require IV/fluids at this time.
[2020-01-22 10:45] VITALS: BP 113/76
[2020-01-22 12:49] VITALS: BP 106/74
--- NOTE | 2020-01-22 13:58 | NUR ---
Discharge Discharge instructions given as ordered. Encourage to follow up with PMD as instructed. All questions and concerns addressed. Patient verbalized understanding. Medication reconciliation form completed and copy given to patient. IV removed with catheter intact, pressure dressing applied. Telemetry unit returned to ICU. Patient ambulated to vehicle with all personal belongings, accompanied by staff. No distress noted at time of departure.
== END 2020-01-22 13:58 | disposition home or self-care (01) | DRG 710 ==
LOC: ER 16:12 → EDBD 16:12 → TELE 16:13 → TELE-WESTW 20:15 → DOU IN ICU 01-18 10:30 → TELE-CENTR 01-21 06:30
PROVIDERS: ADMIT Nurse Practitioner Acute Care; ATTEND Family Medicine
PROC: 4A023N7 Measurement of Cardiac Sampling and Pressure, Left Heart, Percutaneous Approach (ICD-10-PCS; principal; 2020-01-18)
PROC: 027034Z Dilation of Coronary Artery, One Artery with Drug-eluting Intraluminal Device, Percutaneous Approach (ICD-10-PCS; 2020-01-18)
PROC: B2111ZZ Fluoroscopy of Multiple Coronary Arteries using Low Osmolar Contrast (ICD-10-PCS; 2020-01-18)
PROC: B2151ZZ Fluoroscopy of Left Heart using Low Osmolar Contrast (ICD-10-PCS; 2020-01-18)
DX: A41.9 Sepsis, unspecified organism (principal); I21.4 Non-ST elevation (NSTEMI) myocardial infarction; J96.01 Acute respiratory failure with hypoxia; J18.9 Pneumonia, unspecified organism; F17.200 Nicotine dependence, unspecified, uncomplicated; E87.5 Hyperkalemia; E78.00 Pure hypercholesterolemia, unspecified; I10 Essential (primary) hypertension; E78.5 Hyperlipidemia, unspecified; F10.10 Alcohol abuse, uncomplicated; E66.01 Morbid (severe) obesity due to excess calories; Z79.899 Other long term (current) drug therapy; Z95.5 Presence of coronary angioplasty implant and graft; Z68.39 Body mass index [BMI] 39.0-39.9, adult; I25.5 Ischemic cardiomyopathy; I25.2 Old myocardial infarction
CPT/HCPCS: 36415; 36600; 71045; 71275; 76705; 80048; 80053; 80061; 80202; 80307; 81001; 82805; 83605; 83735; 83880; 84132; 84484; 84702; 85025; 85379; 85610; 85730; 86141; 87040; 92928; 93005; 93306; 93458; 93970; 94640; 97163; 99152; 99153; C1874; G0378; J1815; J2250; J2405; J2543; J3490; J7060